=== PATIENT | female | born 1990 | race African-American/Black ===

== ENCOUNTER 2020-02-12 17:15 | Emergency (ER) | payer OTHER ==
[~2020-02-12] VITALS: Ht 157.5 cm; Wt 64.9 kg
[2020-02-12 17:21] VITALS: BP 110/60
[2020-02-12] MEDS ORDERED: KETOROLAC 30 MG/ML VIAL IM ONE (17:40)
--- NOTE | 2020-02-12 17:47 | NUR ---
PATIENT AMBULATED TO ER BED 07
--- NOTE | 2020-02-12 17:49 | NUR ---
29 Y/O FEMALE C/O HEMATURIA X1 WEEK ACCOMPANIED BY RIGHT FLANK PAIN RADIATING TO LOWER ABDOMEN. PATIENT DENIES ANY DYSURIA. PATIENT HAS NAUSEA AND DIARRHEA. RESP EVEN AND UNLABORED, VSS. HX: VAGINAL CANCER, KIDNEY STONES,
[2020-02-12 18:14] LABS: BASOPHILS # (AUTO) 0.1 K/uL (0.00-0.22); BASOPHILS % (AUTO) 0.6 % (0.0-2.0); EOSINOPHILS # (AUTO) 0.2 K/uL (0-0.4); EOSINOPHILS % (AUTO) 1.8 % (0.0-4.0); HEMATOCRIT 36.2 % (36-48); HEMOGLOBIN 11.8 g/dL (12.0-16.0); LYMPHOCYTES # (AUTO) 2.9 K/uL (2.5-16.5); LYMPHOCYTES % (AUTO) 28.5 % (20.5-51.1); MEAN CORPUSCULAR HEMOGLOBIN 28 pg (27-31); MEAN CORPUSCULAR HGB CONC 33 g/dL (33-37); MONOCYTES # (AUTO) 0.6 K/uL (0.8-1.0); MONOCYTES % (AUTO) 5.8 % (1.7-9.3); NEUTROPHILS # (AUTO) 6.5 K/uL (1.8-7.7); NEUTROPHILS % (AUTO) 63.3 % (42.2-75.2); PLATELET COUNT (AUTO) 202 K/uL (140-450); RED BLOOD CELL COUNT(AUTO) 4.16 MIL/uL (4.20-5.40); RED CELL DISTRIBUTION WIDTH 14.5 % (11.6-13.7); WHITE BLOOD COUNT (AUTO) 10.3 K/uL (4.8-10.8)
--- NOTE | 2020-02-12 18:29 | NUR ---
PT TAKEN TO CT VIA WHEELCHAIR
--- NOTE | 2020-02-12 18:38 | NUR ---
Pt returned from CT via wheelchair
[2020-02-12 18:54] LABS: ALBUMIN 3.6 g/dL (3.4-5.0); ANION GAP 9.6 (8-16); CARBON DIOXIDE 27.9 mmol/L (21-32); CREATININE 1.1 mg/dL (0.6-1.3); POTASSIUM 3.5 mmol/L (3.5-5.1); TOTAL BILIRUBIN 0.3 mg/dL (0.0-1.0)
[2020-02-12 19:12] VITALS: BP 110/60
--- NOTE | 2020-02-12 19:12 | NUR ---
Patient discharged with v/s stable. Written and verbal after care instructions given and explained. Patient alert, oriented and verbalized understanding of instructions. Ambulatory with steady gait. All questions addressed prior to discharge. ID band removed. Patient advised to follow up with PMD. Rx of CIPRO, TYLENOL given. Patient educated on indication of medication including possible reaction and side effects. Opportunity to ask questions provided and answered.
== END 2020-02-12 19:12 | disposition home or self-care (01) ==
LOC: MED 17:15
DX: N39.0 Urinary tract infection, site not specified (principal); Z85.42 Personal history of malignant neoplasm of other parts of uterus
CPT/HCPCS: 36415; 74176; 80053; 81002; 81025; 85025; 96372; 99284; J1885